=== PATIENT | female | born 1950 | race Two or more races ===

== ENCOUNTER 2017-12-07 06:03 | Day surgery (SDC) | payer MEDICARE, MEDICAID ==
[2017-12-07] VITALS (11 sets, daily range): BP systolic 112–145; BP diastolic 52–80
[~2017-12-07] VITALS: Ht 160 cm; Wt 113.9 kg
[~2017-12-07 06:03] MED LIST: ASPIR 8181 MG ORAL; BENTYL10 MG ORAL; LEVOTHYROXINE112 MCG ORAL; METFORMIN HCL500 M5 PO; NALTREXONE HCL50 MG PO; ZESTORETIC 20-1 EAC1 PO
[2017-12-07] MEDS ORDERED: VITAMIN D1000 UNI1 ORAL (06:42)
[2017-12-07] MEDS ORDERED: Ropivacaine 5mg/ml Vial 30ml INJ ONE (07:05)
[2017-12-07] MEDS ORDERED: NS Irrig 1000ml ONE (07:30)
[2017-12-07] MEDS ORDERED: Propofol 200mg/20ml IV ONE (07:30)
[2017-12-07] MEDS ORDERED: Sterile Water Irrig 1000ml IRRIG ONE (07:30)
[2017-12-07] MEDS ORDERED: Midazolam 2mg/2ml Inj ONE (07:30)
[2017-12-07] MEDS ORDERED: Ketorolac 30mg Inj ONE (07:30)
[2017-12-07] MEDS ORDERED: fentaNYL 100 mcg/2 mL IV ONE (07:30)
[2017-12-07] MEDS ORDERED: LR 1000ml ONE (07:30)
[2017-12-07] MEDS ORDERED: cefOXitin 2gm Inj ONE (07:35)
--- NOTE | 2017-12-07 07:38 | Pre-Procedure Note/Attestation ---
Pre-Procedure Note/Attestation Complete Prior to Procedure Planned Procedure: not applicable Procedure Narrative: hysteroscopy dilation and curettage/ possible resectoscope Indications for Procedure Pre-Operative Diagnosis: endometrial hyperplasia Attestation I attest that I discussed the nature of the procedure; its benefits; risks and complications; and alternatives (and the risks and benefits of such alternatives ), prior to the procedure, with the patient (or the patient's legal escrow representative). I attest that, if there was a reasonable possibility of needing a blood transfusion, the patient (or the patient's legal escrow representative) was given the [facility] standardized written summary, pursuant to the [place] Blood Safety Act ([place] Health and Safety Code # 1645, as amended). I attest that I re-evaluated the patient just prior to the surgery and that there has been no change in the patient's H&P, except as documented below: STEPHANIE VALLADARES Dec 07, 2017 07:38
[2017-12-07] MEDS ORDERED: Norco 5mg/325mg tab ORAL PRN (07:45)
[2017-12-07] MEDS ORDERED: Tylenol #3 tab (300mg/30mg) ORAL PRN (07:45)
[2017-12-07] MEDS ORDERED: DiphenhydrAMINE 50mg/ml Inj IVP PRN ×2 (07:45→08:15)
[2017-12-07] MEDS ORDERED: D5 1/2NS 1,000 ML IV SCH (07:45)
[2017-12-07] MEDS ORDERED: HYDROmorphone 1mg/ml Carpuject SUBQ PRN (07:45)
[2017-12-07] MEDS ORDERED: Meperidine 50mg/ml Inj(FOR RIGORS ONLY) IV PRN (08:15)
[2017-12-07] MEDS ORDERED: Hydromorphone 0.5mg/0.5ml inj IVP PRN (08:15)
[2017-12-07] MEDS ORDERED: Ketorolac 30mg Inj IV PRN (08:15)
--- NOTE | 2017-12-07 08:15 | Anethesia Preoperative Eval ---
Anesthesia Pre-op PMH/ROS General Date of Evaluation: Dec 07, 2017 Time of Evaluation: 07:22 Anesthesiologist: Rashard ASA Score: ASA 3 Mallampati Score Class I : Soft palate, uvula, fauces, pillars visible Class II: Soft palate, uvula, fauces visible Class III: Soft palate, base of uvula visible Class IV: Only hard plate visible Mallampati Classification: Class III Surgeon: Lizeth Diagnosis: Endometrial hyperplasia Surgical Procedure: D&C Hysteroscopy Anesthesia History: none Family History: no anesthesia problems Allergies: Coded Allergies: PENICILLIN G (Verified Allergy, Severe, swelling of the hands, face, ) Medications: see eMAR Past Medical History Cardiovascular: Reports: HTN, Denies: CAD, CT, valve dz, arrhythmia, other Pulmonary: Reports: PURVI, Denies: asthma, COPD, other Gastrointestinal/Genitourinary: Reports: GERD, Denies: CRI, ESRD, other Neurologic/Psychiatric: Reports: depression/anxiety, Denies: dementia, CVA, TIA, other Endocrine: Reports: hypothyroidism, Denies: DM, steroids, other HEENT: Denies: cataract (L), cataract (R), glaucoma, ATKA (L), ATKA (R), other Hematology/Immune: Denies: anemia, DVT, bleeding disorder, other Musculoskeletal/Integumentary: Denies: OA, RA, DJD, DDD, edema, other Other: obesity PMH Narrative: as above PSxH Narrative: Appendectomy, cholecystectomy Anesthesia Pre-op Phys. Exam Physician Exam Last Vital Signs Date Time Temp Pulse Resp B/P (MAP) Pulse Ox O2 Delivery O2 Flow Rate FiO2 12/07/17 06:36 97.0 68 18 117/52 98 Room Air Constitutional: NAD Neurologic: CN 2-12 intact Cardiovascular: RRR, no M/R/G Respiratory: CTA Gastrointestinal: other - obesity Airway Exam Mallampati Score: Class III MO: full Neck: short ROM: full Teeth: missing Dentures: no upper, no lower Anesthesia Pre-op A/P Labs see chart Studies Pre-op Studies: EKG - NSR Risk Assessment & Plan Assessment: ASA 3 Plan: GA with LMA Status Change Before Surgery: No Pre-Antibiotics Drug: Cefoxitin 2 gr. Given Within 1 Hr of Incision: Yes Time Given: 08:12 JONES HAYWOOD M.D. Dec 07, 2017 08:15
--- NOTE | 2017-12-07 08:52 | Brief Operative Note ---
Immediate Post Operative Note Operative Note Pre-op Diagnosis: endometrial hyperplasia Procedure: resection of polyp with resectoscopy/ dilation and curettage Post-op Diagnosis: polyp Surgeon: maria guadalupe zamora Anesthesiologist: sveta Anesthesia: general Specimen: yes Complications: none Condition: stable Fluids: 1.2 literes Estimated Blood Loss: minimal Drains: none Implant(s) used?: No MARIA GUADALUPE ZAMORA Dec 07, 2017 08:52
--- NOTE | 2017-12-07 10:23 | Immediate Post-Op Evaluation ---
Immediate Post-Op Evalulation Immediate Post-Op Evalulation Procedure: D&C Hysteroscopy Polypectomy Date of Evaluation: Dec 07, 2017 Time of Evaluation: 09:04 IV Fluids: 1000 Blood Products: none Estimated Blood Loss: 50 Urinary Output: 150 Blood Pressure Systolic: 135 Blood Pressure Diastolic: 78 Pulse Rate: 68 Respiratory Rate: 20 O2 Sat by Pulse Oximetry: 99 Temperature (Fahrenheit): 97.6 Pain Score (1-10): 2 Nausea: No Vomiting: No Complications none Patient Status: reacts, patent, none Hydration Status: adequate JONES HAYWOOD M.D. Dec 07, 2017 10:23
--- NOTE | 2017-12-07 11:29 | 48 Hour Post Anesthesia Eval ---
Post Anesthesia Evaluation Procedure: D&C Hysteroscopy Polypectomy Date of Evaluation: Dec 07, 2017 Time of Evaluation: 11:27 Blood Pressure Systolic: 116 0: 75 Pulse Rate: 77 Respiratory Rate: 20 Temperature (Fahrenheit): 97.6 O2 Sat by Pulse Oximetry: 99 Airway: patent Nausea: No Vomiting: No Pain Intensity: 2 Hydration Status: adequate Cardiopulmonary Status: stable Mental Status/LOC: patient returned to baseline Follow-up Care/Observations: n/a Post-Anesthesia Complications: none Follow-up care needed: ready to discharge JONES HAYWOOD M.D. Dec 07, 2017 11:29
--- NOTE | 2017-12-07 21:46 | Operative Note - Dictated ---
DATE OF OPERATION: 12/07/2017 PREOPERATIVE DIAGNOSIS: Endometrial hyperplasia versus polyp. POSTOPERATIVE DIAGNOSIS: Polyp. PROCEDURE: D and C, hysteroscopy, resectoscope, hysteroscopic resection of polyp. ANESTHESIA: General. ANESTHESIOLOGIST: Hugo Wetzel M.D. SURGEON: Em Fragoso M.D. ESTIMATED BLOOD LOSS: Minimal. SORBITOL DEFICITS: None. SPECIMENS: ECC and endometrial polyp. PROCEDURE IN DETAIL: After ensuring informed consent, the patient was taken to the operating room, where general anesthesia was induced. The patient was sterilely prepped and draped. Weighted speculum was placed in the vagina. Cervix was dilated to an 8 Hegar dilator. Hysteroscope was placed inside the uterine cavity. A large cystic polyp was observed. Hysteroscope was withdrawn. Attempts were made to remove the polyp with polyp forceps. Attempts failed. Hysteroscope was replaced and some of the polyp was removed, but the stalk of the polyp was still there. Hysteroscope was removed and resectoscope was called for. Normal saline was allowed to escape from the uterus. Uterus was distended with sorbitol after the cervix was dilated to 10 Hegar dilator. Resectoscope was placed inside the uterine cavity. Polyp was observed and under 50/50 setting, was easily resected. Polyp was cystic and collapsed during resection and was removed. Fractional curettage was performed. The cavity appeared clean. There were no perforations. Both ostia were observed. Resectoscope was removed. All instrument and lap counts were correct x2. The patient was taken to the recovery area, extubated, and in stable condition at the end of the procedure. Em Fragoso M.D. DR: NEIDA JOB#: [id number] CC: BEATRICE
== END 2017-12-07 10:25 | disposition home or self-care (01) ==
LOC: SUR 06:03
DX: N84.0 Polyp of corpus uteri (principal); E03.9 Hypothyroidism, unspecified; E04.1 Nontoxic single thyroid nodule; E66.01 Morbid (severe) obesity due to excess calories; I10 Essential (primary) hypertension; G47.33 Obstructive sleep apnea (adult) (pediatric); M17.11 Unilateral primary osteoarthritis, right knee; K57.90 Diverticulosis of intestine, part unspecified, without perforation or abscess without bleeding; K21.9 Gastro-esophageal reflux disease without esophagitis; F41.9 Anxiety disorder, unspecified; F32.9 Major depressive disorder, single episode, unspecified; Z88.0 Allergy status to penicillin; Z68.41 Body mass index [BMI] 40.0-44.9, adult; Z90.49 Acquired absence of other specified parts of digestive tract; Z88.8 Allergy status to other drugs, medicaments and biological substances; Z90.89 Acquired absence of other organs; Z79.82 Long term (current) use of aspirin; Z79.84 Long term (current) use of oral hypoglycemic drugs
CPT/HCPCS: 58558; 82962; J0694; J1885; J2250; J2704; J3010; J7120; 94003; 94150